=== PATIENT | male | born 1935 | race African-American/Black ===

== ENCOUNTER 2018-04-03 05:52 | Inpatient (IN) | payer MEDICARE, MEDICAID ==
[~2018-04-03] VITALS: Ht 177.8 cm; Wt 77.1 kg
[2018-04-03 07:42] LABS: BASOPHILS % 0.7 % (0.0-2.0); CHLORIDE 108 mEq/L (98-107); EOSINOPHILS % 4.2 % (0.0-5.0); HEMATOCRIT. 42.3 % (42.0-52.0); HEMOGLOBIN. 13.9 g/dL (14.0-18.0); LYMPHOCYTES % 22.5 % (20.0-50.0); MEAN CORPUSCULAR VOLUME 88.2 fL (80.0-94.0); MEAN PLATELET VOLUME 9.2 fl (7.4-10.4); MONOCYTES % 12.1 % (2.0-8.0); NEUTROPHILS % 60.5 % (40.0-76.0); PLATELET 196 x1000/uL (130-400); RED BLOOD CELL COUNT 4.79 mill/uL (4.7-6.1); RED CELL DISTRIBUTION WIDTH 17.3 % (11.6-14.6)
[2018-04-03] MEDS ORDERED: SODIUM CHLORIDE 0.9% 1,000 ML IV ONE (08:45)
[2018-04-03 09:32] LABS: INR 1.1; PARTIAL THROMBOPLASTIN TIME 27.7 sec (23.4-31.0); PROTHROMBIN TIME 11.2 sec (9.1-11.1)
[2018-04-03 09:47] LABS: BG BASE EXCESS 1.8 mmol/L (-2.0-2.0); BG CARBOXYHEMOGLOBIN 1.2 % (0.5-1.5); BG DEOXYHEMOGLOBIN 12.7 % (0.0-5.0); BG FRACTION INSPIRED OXYGEN 21; BG HCO3 ACT 27.4 mmol/L (22.0-26.0); BG METHEMOGLOBIN 0.3 % (0.0-1.5); BG OXYGEN SATURATION 87.1 % (92.0-98.5); BG OXYHEMOGLOBIN 85.8 % (94.0-97.0); BG PCO2 46.8 mmHg (35.0-45.0); BG PH 7.385 (7.350-7.450); BG PO2 57.8 mmHg (75.0-100.0); BG SAMPLE SITE LEFT RADIAL; BG TOTAL HEMOGLOBIN 13.4 g/dL (12.0-18.0); BG VENT MODE ROOM AIR
[2018-04-03] MEDS ORDERED: CHLO-188 PO (21:51)
[2018-04-03] MEDS ORDERED: POTA20TA82 PO (21:51)
[2018-04-03] MEDS ORDERED: ASPI-1159 PO (21:51)
[2018-04-03] MEDS ORDERED: OMEG1CAP46 PO (21:51)
[2018-04-03] MEDS ORDERED: SAXA5TAB PO (21:51)
[2018-04-03] MEDS ORDERED: MULT-1146 PO (21:51)
[2018-04-03] MEDS ORDERED: [UNRECOGNIZED DRUG - OTHER] PO (21:51)
[2018-04-03] MEDS ORDERED: FURO20TA4 PO (21:51)
[2018-04-03] MEDS ORDERED: ATOR-2 PO (21:51)
[2018-04-03] MEDS ORDERED: PREG75CA PO (21:51)
[2018-04-03 22:31] VITALS: BP 166/91
[2018-04-03] MEDS ORDERED: ONDANSETRON HCL 4MG/2ML INJ IV PRN (23:45)
[2018-04-04] VITALS: BP 136/63
[2018-04-04] MEDS ORDERED: DEXTROSE 50% WATER 50ML SYRINGE IV PRN
[2018-04-04] MEDS: PANTOPRAZOLE SODIUM 40 MG/VIAL IV SCH ×2 (00:17→08:59)
[2018-04-04] MEDS: DEXT 5%/0.45% NACL 1000ML 1,000 ML IV SCH ×2 (00:20→13:44)
[2018-04-04 04:00] VITALS: BP 122/78
[2018-04-04 06:53] LABS: BASOPHILS % 0.8 % (0.0-2.0); EOSINOPHILS % 3.7 % (0.0-5.0); HEMOGLOBIN. 12.5 g/dL (14.0-18.0); MEAN CORPUSCULAR HEMOGLOBIN 29.7 pg (28.0-32.0); MEAN CORPUSCULAR VOLUME 87.9 fL (80.0-94.0); MEAN PLATELET VOLUME 9.7 fl (7.4-10.4); MONOCYTES % 11.4 % (2.0-8.0); NEUTROPHILS % 66.1 % (40.0-76.0); PLATELET 177 x1000/uL (130-400); RED BLOOD CELL COUNT 4.21 mill/uL (4.7-6.1); RED CELL DISTRIBUTION WIDTH 17.7 % (11.6-14.6)
[2018-04-04 07:10] LABS: CHLORIDE 110 mEq/L (98-107)
[2018-04-04 07:30] LABS: HDL CHOLESTEROL 26 mg/dL (40-59); LDL CHOLESTEROL 89 mg/dL (5-100); T4 FREE 0.82 ng/dL (0.76-1.46)
[2018-04-04] MEDS: INSULIN LISPRO 100 UNITS/ML SUBCUT SCH ×2 (07:52→12:04)
[2018-04-04] MEDS: BLOOD SUGAR DIAGNOSTIC STRIP TEST SCH ×2 (07:52→12:04)
[2018-04-04 08:00] VITALS: BP 138/74
[2018-04-04 12:00] VITALS: BP 138/77
[2018-04-04 14:48] LABS: HEMATOCRIT 39.2 % (42.0-52.0)
[2018-04-04 16:00] VITALS: BP 172/75
[2018-04-04] MEDS ORDERED: PHENYLEPHRINE/SHK LV/MO/PET,WH RECTAL OINT 57GM PR SCH (18:00)
[2018-04-04 20:20] LABS: HEPATITIS B SURFACE ANTIGEN NEGATIVE
[2018-04-04 20:45] LABS: HEPATITIS B CORE AB IGM NEGATIVE
[2018-04-04 20:48] LABS: HEPATITIS A AB IGM NEGATIVE (NEGATIVE)
== END 2018-04-04 18:22 | disposition home or self-care (01) | DRG 394 ==
LOC: ER 07:40 → EDBEDREQ 09:30 → EDBEDREQTM 09:30 → EDBEDREQ 09:31 → 7WST 09:56 → EDBEDREQ 09:59 → ENRESERV 19:09
PROVIDERS: ADMIT Internal Medicine; ATTEND Internal Medicine
DX: K64.9 Unspecified hemorrhoids (principal); J44.1 Chronic obstructive pulmonary disease with (acute) exacerbation; N17.9 Acute kidney failure, unspecified; D64.9 Anemia, unspecified; E11.9 Type 2 diabetes mellitus without complications; E78.5 Hyperlipidemia, unspecified; F17.200 Nicotine dependence, unspecified, uncomplicated; I10 Essential (primary) hypertension; N28.9 Disorder of kidney and ureter, unspecified; K76.9 Liver disease, unspecified; Z79.82 Long term (current) use of aspirin; Z91.19 Patient's noncompliance with other medical treatment and regimen; Z79.899 Other long term (current) drug therapy
CPT/HCPCS: 36415; 36430; 36600; 71045; 74176; 76700; 80061; 82375; 82805; 82962; 83880; 84439; 84443; 84484; 85014; 85018; 86705; 86709; 86803; 86850; 86900; 87340; 93005; 96360; 96361; 99291; C9113; J3490

== ENCOUNTER 2021-08-10 10:34 | Emergency (ER) | payer MEDICARE, MEDICAID ==
[~2021-08-10] VITALS: Ht 170.2 cm; Wt 64.0 kg
[~2021-08-10 10:34] MED LIST: ATOR-2 PO; CHLO-188 PO; FURO20TA4 PO; MULT-1146 PO; OMEG1CAP46 PO; POTA20TA82 PO; PREG75CA PO; SAXA5TAB PO; [UNRECOGNIZED DRUG - OTHER] PO
[2021-08-10 11:07] VITALS: BP 144/82
[2021-08-10] MEDS ORDERED: ACETAMINOPHEN 325MG TABLET PO ONE (11:15)
== END 2021-08-10 14:43 | disposition home or self-care (01) ==
LOC: ER 10:54
DX: S80.12XA Contusion of left lower leg, initial encounter (principal); E11.9 Type 2 diabetes mellitus without complications; I10 Essential (primary) hypertension; E78.00 Pure hypercholesterolemia, unspecified; F12.10 Cannabis abuse, uncomplicated; W01.0XXA Fall on same level from slipping, tripping and stumbling without subsequent striking against object, initial encounter; Z91.81 History of falling; Y93.89 Activity, other specified; Y92.018 Other place in single-family (private) house as the place of occurrence of the external cause
CPT/HCPCS: 73590; 99283